=== PATIENT | female | born 1960 | race Caucasian/White ===

== ENCOUNTER 2018-01-13 19:34 | Emergency (ER) | payer OTHER ==
[~2018-01-13] VITALS: Ht 157.5 cm; Wt 99.8 kg
[~2018-01-13 19:34] MED LIST: AFRIN15 ML NASAL; ALBUTEROL INHAL17 GM IH; ALBUTEROL2.5 MG/0.5 INH; ALKA-SELTZER D1 EACH PO; AMOXICILLIN 50500 M1 PO; ANTIVERT25 MG PO; AUGMENTIN 875-1 EACH PO; AZITHROMYCIN 2250 MG PO; BACTRIM DS TAB1 EACH; BENADRYL25 MG PO; BUSPAR; CLARITIN10 MG PO; CLEOCIN HCL300 MG PO; CLOBETASOL PROP50 M1 TOP; CLOBETASOL PROP50 ML TOP; DOXYCYCLINE 10100 M1; DUONEB 2.5-0.5 M3 ML INH; FLEXERIL PO; FLONASE 0.05%50 MCG NASAL; FLONASE 0.05%50 MCG NS; GABAPENTIN 100100 MG PO; HYDROCODON-ACE1 EAC7 PO; HYDROCODONE-AP1 EAC6 PO; IBUPROFEN 200200 M1 PO; IBUPROFEN 800800 M1 PO; KEFLEX500 MG PO; LEVAQUIN 500 M500 MG PO; LEXAPRO 10 MG T10 M1; LISINOPRIL-HCT1 EAC2; MECLIZINE HCL25 M1 PO; MEDROLDOSEPACK PO; MOBIC7.5 MG PO; NAPROSYN500 MG PO; NOHOMEMEDICATIONS; NORCO 5-325 TA1 EACH PO; NYQUIL D COLD295 ML PO; OSELB75 PO; PENICILLIN VK500 M1 PO; PERCOCET 5-3251 EACH PO; PHENERGAN 25 MG25 M1 PO; PHENERGAN 25 MG25 MG PO; PREDNISONE 20 M20 M1 PO; PREDNISONE50 MG PO; PROAIR HFA8.5 GM IH; ROBAXIN 750 MG750 M1 PO; ROBITUSSIN-COU237 ML PO; TESSALON PERLE100 MG PO; TUSSIONEX PENN473 ML PO; VALTREX1000 MG PO; VEETIDS 500500 MG PO; VICODIN 5-5001 EACH PO; ZANTAC 7575 MG PO; ZESTRIL10 MG PO; ZOFRAN ODT4 MG PO; ZPAK PO
[2018-01-13] MEDS ORDERED: FLEXERIL PO (19:46)
[2018-01-13] MEDS ORDERED: PENICILLIN VK500 MG PO (19:55)
[2018-01-13] MEDS ORDERED: NORCO 5-325 TA1 EAC1 PO (19:55)
[2018-01-13 20:07] VITALS: BP 126/63
== END 2018-01-13 20:08 | disposition home or self-care (01) ==
LOC: M.ERS 19:34
DX: K08.9 Disorder of teeth and supporting structures, unspecified (principal); K04.7 Periapical abscess without sinus; I10 Essential (primary) hypertension; J44.9 Chronic obstructive pulmonary disease, unspecified; Z98.890 Other specified postprocedural states; Z88.5 Allergy status to narcotic agent

== ENCOUNTER 2018-03-10 21:45 | Emergency (ER) | payer OTHER ==
[~2018-03-10] VITALS: Ht 160 cm; Wt 95.3 kg
[~2018-03-10 21:45] MED LIST changes: +NORCO 5-325 TA1 EAC1 PO; +PENICILLIN VK500 MG PO
[2018-03-10] MEDS ORDERED: TESSALON PERLE100 MG PO (22:13)
[2018-03-10] MEDS ORDERED: ZPAK PO (22:13)
[2018-03-10] MEDS ORDERED: MEDROLDOSEPACK PO (22:13)
[2018-03-10] MEDS ORDERED: PROMETHAZINE V473 ML PO (22:14)
[2018-03-10 22:25] VITALS: BP 131/72
== END 2018-03-10 22:25 | disposition home or self-care (01) ==
LOC: M.ERS 21:45
DX: J20.9 Acute bronchitis, unspecified (principal); I10 Essential (primary) hypertension; J44.9 Chronic obstructive pulmonary disease, unspecified; G89.29 Other chronic pain; M54.9 Dorsalgia, unspecified; Z90.49 Acquired absence of other specified parts of digestive tract; Z88.5 Allergy status to narcotic agent

== ENCOUNTER 2019-07-31 21:17 | Emergency (ER) | payer OTHER ==
[~2019-07-31] VITALS: Ht 160 cm; Wt 90.7 kg
[~2019-07-31 21:17] MED LIST changes: +PROMETHAZINE V473 ML PO
[2019-07-31] MEDS ORDERED: STIOLTO RESPIMAT4 GM INH (21:32)
[2019-07-31] MEDS ORDERED: PEPCID40 MG PO (21:32)
[2019-07-31 22:44] VITALS: BP 132/74
== END 2019-07-31 22:44 | disposition home or self-care (01) ==
LOC: M.ERS 21:17
DX: S90.852A Superficial foreign body, left foot, initial encounter (principal); I10 Essential (primary) hypertension; M54.9 Dorsalgia, unspecified; G89.29 Other chronic pain; J44.9 Chronic obstructive pulmonary disease, unspecified; Z88.5 Allergy status to narcotic agent; Z90.49 Acquired absence of other specified parts of digestive tract; W45.8XXA Other foreign body or object entering through skin, initial encounter; Y92.89 Other specified places as the place of occurrence of the external cause; Y93.89 Activity, other specified; Y99.8 Other external cause status

== ENCOUNTER 2020-03-15 01:01 | Emergency (ER) | payer OTHER ==
[~2020-03-15] VITALS: Ht 162.6 cm; Wt 97.5 kg
[~2020-03-15 01:01] MED LIST changes: +PEPCID40 MG PO; +STIOLTO RESPIMAT4 GM INH
[2020-03-15 01:15] VITALS: BP 149/84
[2020-03-15] MEDS ORDERED: NORCO 5-325 TA1 EAC1 PO (01:29)
[2020-03-15] MEDS ORDERED: AMOXICILLIN 50500 MG PO (01:29)
== END 2020-03-15 01:42 | disposition home or self-care (01) ==
LOC: M.ERS 01:01
DX: K04.7 Periapical abscess without sinus (principal); J44.9 Chronic obstructive pulmonary disease, unspecified; I10 Essential (primary) hypertension; G89.29 Other chronic pain; Z90.49 Acquired absence of other specified parts of digestive tract; Z98.51 Tubal ligation status; Z88.5 Allergy status to narcotic agent

== ENCOUNTER 2020-06-13 11:59 | Emergency (ER) | payer OTHER ==
[~2020-06-13] VITALS: Ht 157.5 cm; Wt 90.7 kg
[~2020-06-13 11:59] MED LIST changes: +AMOXICILLIN 50500 MG PO
[2020-06-13 12:04] VITALS: BP 124/75
[2020-06-13] MEDS ORDERED: LIDOCAINE VISC100 ML SWISH&SPIT (12:17)
[2020-06-13] MEDS ORDERED: TRAMADOL 50 MG50 MG PO (12:17)
[2020-06-13] MEDS ORDERED: AMOXICILLIN 50500 MG PO (12:17)
== END 2020-06-13 12:20 | disposition home or self-care (01) ==
LOC: M.ERS 11:59
DX: K04.7 Periapical abscess without sinus (principal); K02.9 Dental caries, unspecified; I10 Essential (primary) hypertension; J44.9 Chronic obstructive pulmonary disease, unspecified; G89.29 Other chronic pain; Z88.5 Allergy status to narcotic agent; Z98.51 Tubal ligation status; Z90.49 Acquired absence of other specified parts of digestive tract

== ENCOUNTER 2020-07-26 12:16 | Emergency (ER) | payer OTHER ==
[~2020-07-26] VITALS: Ht 162.6 cm; Wt 99.8 kg
[~2020-07-26 12:16] MED LIST changes: +LIDOCAINE VISC100 ML SWISH&SPIT; +TRAMADOL 50 MG50 MG PO
[2020-07-26 12:57] LABS: ABSOLUTE BASOPHILS 0.1 thou/uL (0.0-0.2); ABSOLUTE EOSINOPHILS 0.2 thou/uL (0.0-0.7); ABSOLUTE LYMPHOCYTES 2.4 thou/uL (0.8-5.3); ABSOLUTE MONOCYTES 0.9 thou/uL (0.0-1.2); BASOPHILS 1.3 %; EOSINOPHILS 1.6 %; HEMATOCRIT 43.2 % (37.0-47.0); HEMOGLOBIN 14.4 gm/dL (12.0-15.0); LYMPHOCYTES 24.9 %; MCH 29.3 pg (26.0-34.0); MCHC 33.3 g/dL (28.0-37.0); MCV 87.9 fL (80.0-100.0); MONOCYTES 9.3 %; MPV 9.7 fl. (7.2-11.1); NUCLEATED RBCS 0 /100WBC; PLATELET COUNT* 243 thou/uL (150-400); POLYS 62.9 %; RBC 4.91 mil/uL (4.20-5.00); RDW-CV 14.3 % (10.5-14.5); WBC 9.6 thou/uL (4.0-11.0)
[2020-07-26 13:02] LABS: CALCIUM 8.7 mg/dL (8.5-10.1); POTASSIUM 4.3 mmol/L (3.5-5.1)
[2020-07-26 13:12] LABS: ALBUMIN 3.3 g/dL (3.4-5.0); TOTAL BILIRUBIN 0.1 mg/dL (<0.1-1.0); TOTAL PROTEIN 7.6 g/dL (6.4-8.2)
[2020-07-26] MEDS ORDERED: VENTOLIN HFA 1818 GM INH (14:10)
[2020-07-26] MEDS ORDERED: ZPAK PO (14:10)
[2020-07-26] MEDS ORDERED: MEDROLDOSEPACK PO (14:10)
[2020-07-26 14:18] VITALS: BP 158/60
--- NOTE | 2020-07-26 16:05 | EKG ---
[place] [address] ELECTROCARDIOGRAM REPORT Name: BLAIRANGELHANY CREWS Room: [facility]#: [id number] Admission: 07/26/20 Attend Phys: Discharge: 07/26/20 Date of : 64 Date of Service: 07/26/20 1227 Report #: [id number] THIS REPORT FOR: //name// [facility] ED Test Date: 2020-07-26 Test Time: 12:27:39 Pat Name: ANGEL BLAIR Department: Room: Gender: F Cobol Programmer: CCD : 1960 Requested By: Lucy Boudreaux Order Number: [id number] MD: Spike Higgins Measurements Intervals [place] Rate: 88 P: 64 MI: 156 QRS: 29 QRSD: 115 T: 62 QT: 379 QTc: 459 Interpretive Statements Sinus rhythm Nonspecific intraventricular conduction delay Baseline wander in lead(s) II,III,aVF,V2,V6 Compared to ECG 07/09/2017 13:13:37 no change Electronically Signed On 07-26-2020 16:05:27 CDT by Spike Higgins [email or web address] <ELECTRONICALLY SIGNED> By: Spike Higgins MD, [facility] 07/26/20 1605 1227 1227 Spike Higgins MD, [facility] /EPI
== END 2020-07-26 14:19 | disposition home or self-care (01) ==
LOC: M.ERS 12:16
PROVIDERS: Nurse Practitioner Family
DX: J44.1 Chronic obstructive pulmonary disease with (acute) exacerbation (principal); Z20.828 Contact with and (suspected) exposure to other viral communicable diseases; J98.8 Other specified respiratory disorders; B34.9 Viral infection, unspecified; I10 Essential (primary) hypertension; G89.29 Other chronic pain; Z98.51 Tubal ligation status; Z90.49 Acquired absence of other specified parts of digestive tract; Z79.899 Other long term (current) drug therapy; Z87.891 Personal history of nicotine dependence; Z88.5 Allergy status to narcotic agent

== ENCOUNTER 2020-07-31 13:59 | Emergency (ER) | payer OTHER ==
[~2020-07-31] VITALS: Ht 162.6 cm; Wt 99.8 kg
[~2020-07-31 13:59] MED LIST changes: +VENTOLIN HFA 1818 GM INH
[2020-07-31 15:44] LABS: INFLUENZA A ANTIGEN Negative (Negative); INFLUENZA B ANTIGEN Negative (Negative)
[2020-07-31 15:45] LABS: HEMATOCRIT 41.5 % (37.0-47.0); HEMOGLOBIN 13.6 gm/dL (12.0-15.0); MCH 29.1 pg (26.0-34.0); MCHC 32.8 g/dL (28.0-37.0); MCV 88.9 fL (80.0-100.0); NUCLEATED RBCS 0 /100WBC; PLATELET COUNT* 272 thou/uL (150-400); RBC 4.67 mil/uL (4.20-5.00); WBC 14.4 thou/uL (4.0-11.0)
[2020-07-31 15:54] LABS: CALCIUM 8.2 mg/dL (8.5-10.1); POTASSIUM 4.4 mmol/L (3.5-5.1)
[2020-07-31 16:05] LABS: ALBUMIN 3.3 g/dL (3.4-5.0); TOTAL BILIRUBIN 0.2 mg/dL (<0.1-1.0); TOTAL PROTEIN 7.1 g/dL (6.4-8.2)
[2020-07-31 16:11] LABS: ABSOLUTE EOSINOPHILS 0.1 thou/uL (0.0-0.7); ABSOLUTE MONOCYTES 0.4 thou/uL (0.0-1.2); ABSOLUTE NEUTROPHILS 10.8 thou/uL (1.6-8.1); PLATELET ESTIMATE ADEQUATE
--- NOTE | 2020-07-31 17:22 | EKG ---
[place] [address] ELECTROCARDIOGRAM REPORT Name: BLAIRANGEL Room: [facility]#: [id number] Admission: 07/31/20 Attend Phys: Discharge: Date of : 64 Date of Service: 07/31/20 1519 Report #: [id number] THIS REPORT FOR: //name// [facility] ED Test Date: 2020-07-31 Test Time: 15:19:16 Pat Name: ANGEL BLAIR Department: Room: Gender: F Business Analytics Director: [facility] : 1960 Requested By: Lucy Boudreaux Order Number: [id number] MD: Robin Sinha Measurements Intervals [place] Rate: 75 P: 74 MD: 148 QRS: 45 QRSD: 93 T: 67 QT: 423 QTc: 473 Interpretive Statements Sinus rhythm Abnormal R-wave progression, early transition Compared to ECG 07/26/2020 12:27:39 Intraventricular conduction delay no longer present Electronically Signed On 07-31-2020 17:22:41 CDT by Robin Sinha [email or web address] <ELECTRONICALLY SIGNED> By: Robin Sinha MD, FAC 07/31/20 1722 1519 1519 Robin Sinha MD, [facility] /EPI
[2020-07-31] MEDS ORDERED: PREDNISONE 20 M20 MG PO (17:58)
[2020-07-31] MEDS ORDERED: TESSALON PERLE100 MG PO (17:58)
[2020-07-31] MEDS ORDERED: DOXYCYCLINE 10100 MG PO (17:58)
[2020-07-31 18:07] VITALS: BP 140/70
== END 2020-07-31 18:07 | disposition home or self-care (01) ==
LOC: M.ERS 13:59
PROVIDERS: Nurse Practitioner Family
DX: J44.1 Chronic obstructive pulmonary disease with (acute) exacerbation (principal); Z20.828 Contact with and (suspected) exposure to other viral communicable diseases; B34.9 Viral infection, unspecified; I10 Essential (primary) hypertension; E66.9 Obesity, unspecified; Z98.51 Tubal ligation status; Z90.49 Acquired absence of other specified parts of digestive tract; Z79.899 Other long term (current) drug therapy; Z88.6 Allergy status to analgesic agent; Z87.891 Personal history of nicotine dependence

== ENCOUNTER 2020-08-09 16:22 | Emergency (ER) | payer OTHER ==
[~2020-08-09] VITALS: Ht 162.6 cm; Wt 99.8 kg
[~2020-08-09 16:22] MED LIST changes: +DOXYCYCLINE 10100 MG PO; +PREDNISONE 20 M20 MG PO
[2020-08-09 17:07] LABS: INFLUENZA A ANTIGEN Negative (Negative); INFLUENZA B ANTIGEN Negative (Negative)
[2020-08-09] MEDS ORDERED: ADVAIR 100-501 EACH INH (17:13)
[2020-08-09] MEDS ORDERED: FLONASE 0.05%50 MCG NASAL (17:13)
[2020-08-09 17:40] VITALS: BP 138/92
== END 2020-08-09 17:44 | disposition home or self-care (01) ==
LOC: M.ERS 16:22
PROVIDERS: Nurse Practitioner Psychiatric/Mental Health
DX: J44.9 Chronic obstructive pulmonary disease, unspecified (principal); H92.03 Otalgia, bilateral; Z20.828 Contact with and (suspected) exposure to other viral communicable diseases; I10 Essential (primary) hypertension; Z87.891 Personal history of nicotine dependence; Z88.5 Allergy status to narcotic agent; Z90.49 Acquired absence of other specified parts of digestive tract; Z90.89 Acquired absence of other organs

== ENCOUNTER 2021-08-19 04:46 | Emergency (ER) | payer OTHER ==
[~2021-08-19] VITALS: Ht 160 cm; Wt 95.3 kg
[~2021-08-19 04:46] MED LIST changes: +ADVAIR 100-501 EACH INH
[2021-08-19 04:53] VITALS: BP 142/71
[2021-08-19] MEDS ORDERED: IBUPROFEN 800800 MG PO (06:08)
== END 2021-08-19 06:24 | disposition home or self-care (01) ==
LOC: M.ERS 04:46
DX: S46.911A Strain of unspecified muscle, fascia and tendon at shoulder and upper arm level, right arm, initial encounter (principal); M25.532 Pain in left wrist; I10 Essential (primary) hypertension; J44.9 Chronic obstructive pulmonary disease, unspecified; Z90.49 Acquired absence of other specified parts of digestive tract; Z98.51 Tubal ligation status; Z79.899 Other long term (current) drug therapy; Z87.891 Personal history of nicotine dependence; Z88.5 Allergy status to narcotic agent; W54.1XXA Struck by dog, initial encounter; Y93.89 Activity, other specified; Y92.89 Other specified places as the place of occurrence of the external cause; Y99.8 Other external cause status